=== PATIENT | male | born 1995 | race Caucasian/White ===

== ENCOUNTER 2017-12-21 00:15 | Emergency (ER) | payer SELFPAY ==
--- NOTE | 2017-12-21 01:11 | ER Document Report ---
ED GI/ - General Chief Complaint: Abdominal Pain Stated Complaint: ABDOMINAL PAINS Time Seen by Provider: 12/21/17 01:03 Mode of Arrival: Ambulatory Information source: Patient TRAVEL OUTSIDE OF THE [place] IN LAST 30 DAYS: No - HPI Patient complains to provider of: Abdominal pain Notes: 12/21/17 01:06 Patient is here with complaints of abdominal pain but mainly states that he is only here because he needs a work note because he missed work today. States for last few days when he wakes up in the morning he has had some generalized abdominal pains. He states it feels somewhat like hunger pain although is not hungry. He has some mild nausea with it but denies any vomiting or diarrhea. No blood in his stool. He denies any dysuria or hematuria. No rash. No injury. He denies any abdominal pain currently. He denies any chest pain or shortness of breath. He denies any other complaints. - Related Data Allergies/Adverse Reactions: No Known Allergies Allergy (Unverified 12/21/17 00:19) Past Medical History - Social History Smoking Status: Unknown if Ever Smoked Family History: Reviewed & Not Pertinent Patient has suicidal ideation: No Patient has homicidal ideation: No Renal/ Medical History: Denies: Hx Peritoneal Dialysis Review of Systems - Review of Systems -: Yes All other systems reviewed and negative Physical Exam - Notes Notes: GENERAL: alert, cooperative, nontoxic, no distress. HEAD: normocephalic, atraumatic EYES: conjunctiva pink without discharge, no external redness or swelling. EARS: no external swelling, no external redness NOSE: atraumatic, no external swelling MOUTH/THROAT: mucous membranes moist and pink, posterior pharynx without erythema, swelling, exudate. No trismus or drooling. NECK: soft, supple, full range of motion, no meningismus. CHEST: no distress, lungs clear and equal throughout. No wheezing, rales, rhonchi. CARDIAC: regular rate and rhythm, no murmur, normal capillary refill, normal pulses. No peripheral edema noted. ABDOMEN: Soft, nontender. BACK: full range of motion, no CVA tenderness. EXTREMITIES: full range of motion of all extremities. No redness, no swelling. NEURO: alert and oriented x 3, no focal deficits, full range of motion of all extremities. PYSCH: appropriate mood, affect. Patient is cooperative. SKIN: pink, warm, dry, no rash. Course - Re-evaluation Re-evalutation: 12/21/17 01:08 Patient is nontoxic-appearing with stable vitals. The patient is here mainly to get a work note. He states that over the last few days he has had some abdominal pain whenever he wakes up in the morning associated with some nausea. He denies any vomiting or diarrhea. No blood in his stools. No fever. He denies any pain currently. States that he had a call off of work and would like to get a work note at this time. On exam he has no abdominal tenderness. I asked if he would like for me to evaluate him for his abdominal pain for the workup, he states that he does not want a workup at this time that he would just like a work note saying that he can return back to work today. I will discharge the patient home with a work note. He was instructed to get established with a primary care doctor to have this abdominal pain further evaluated if it continues. He should return the emergency department if he develops worsening pain, high fever, persistent vomiting, or has any further concerns. The patient is noted to have elevated blood pressure during today's emergency department visit. The patient was informed of this finding. The patient was instructed that this may be related to pre-hypertension and requires further evaluation with a primary care provider. The patient has no hypertensive symptoms at this time. The patient's emergency department workup and current diagnosis were explained to the patient and or family. Follow-up instructions were provided. Medications if prescribed were discussed. Instructions for when to return to the emergency department including specific worrisome symptoms were discussed with the patient and/or family. Discharge - Discharge Clinical Impression: Abdominal pain Qualifiers: Abdominal location: generalized Qualified Code(s): R10.84 - Generalized abdominal pain Condition: Stable Disposition: HOME, SELF-CARE Instructions: Abdominal Pain (OM), Family Physicians / Practices Additional Instructions: Establish with a primary care doctor and have your abdominal pain further evaluated. Return the emergency department for worsening pain, high fever, persistent vomiting, blood in her stools, or for any further concerns. Your blood pressure was elevated during today's visit. Have this rechecked with your doctor. Forms: Return to Work Referrals: [facility] [Provider Group] - Follow up as needed
[2017-12-21 01:13] VITALS: BP 152/88
== END 2017-12-21 01:16 | disposition home or self-care (01) ==
LOC: ER 00:15
DX: R10.84 Generalized abdominal pain (principal); R11.0 Nausea; R03.0 Elevated blood-pressure reading, without diagnosis of hypertension
CPT/HCPCS: 99283

== ENCOUNTER 2018-01-07 00:52 | Emergency (ER) | payer SELFPAY ==
[2018-01-07 01:00] VITALS: BP 128/71
--- NOTE | 2018-01-07 02:02 | ER Document Report ---
ED General - General Mode of Arrival: Ambulatory Information source: [employer] TRAVEL OUTSIDE OF THE [place] IN LAST 30 DAYS: No - General Chief Complaint: Cough Stated Complaint: COUGHING UP BLOOD Time Seen by Provider: 01/07/18 01:54 Notes: Patient is a 22 year old male presenting to the emergency department complaining of coughing up blood onset 1 day ago with associated symptoms of throat pain, rhinorrhea and nasal congestion. Patient states he has been coughing and yesterday he had 2 episodes of coughing up blood. Patient describes this as a small clot. Patient states he continues to have a productive cough with sputum although he has not seen any more blood. Patient denies any chest pain, shortness of breath, fevers or recent trauma. Patient further denies a history of hemophilia, being placed on blood thinners or taking B.C or Goodys powder. Patient mentions having possible septal deviation on the left, stating it has been hard for him to breath out of his left nostril for years. (DIEGO MEJIA) - Related Data Allergies/Adverse Reactions: No Known Allergies Allergy (Verified 01/07/18 01:48) Past Medical History - Social History Smoking Status: Current Every Day Smoker Chew tobacco use (# tins/day): No Frequency of alcohol use: None Drug Abuse: Bath salts Family History: Reviewed & Not Pertinent Patient has suicidal ideation: No Patient has homicidal ideation: No Review of Systems - Review of Systems Constitutional: No symptoms reported EENT: See HPI, Nose congestion Cardiovascular: No symptoms reported Respiratory: See HPI, Cough Gastrointestinal: No symptoms reported Genitourinary: No symptoms reported Male Genitourinary: No symptoms reported Musculoskeletal: No symptoms reported Skin: No symptoms reported Hematologic/Lymphatic: No symptoms reported Neurological/Psychological: No symptoms reported -: Yes All other systems reviewed and negative Physical Exam - Vital signs Vitals: Temp Pulse Resp BP Pulse Ox 97.5 F 67 20 128/71 H 98 01/07/18 00:58 01/07/18 00:58 01/07/18 00:58 01/07/18 00:58 01/07/18 00:58 - Notes Notes: GENERAL: Alert, interacts well. No acute distress. HEAD: Normocephalic, atraumatic. EYES: Pupils equal, round, and reactive to light. Extraocular movements intact. ENT: Oral mucosa moist, tongue midline. Turbinate edema bilaterally, worse on the left, clear rhinorrhea. Cobblestoning in the posterior oropharynx. Postnasal drip. TM's intacts. NECK: Full range of motion. Supple. Trachea midline. LUNGS: Clear to auscultation bilaterally, no wheezes, rales, or rhonchi. No respiratory distress. HEART: Regular rate and rhythm. No murmurs, gallops, or rubs. ABDOMEN: Soft, non-tender. Non-distended. Bowel sounds present in all 4 quadrants. EXTREMITIES: Moves all 4 extremities spontaneously. No edema, radial and dorsalis pedis pulses 2/4 bilaterally. No cyanosis. NEUROLOGICAL: Alert and oriented x3. Normal speech. PSYCH: Normal affect, normal mood. SKIN: Warm, dry, normal turgor. No rashes or lesions noted. (DIEGO MEJIA) Course - Re-evaluation Re-evalutation: 01/07/18 02:03 Patient refuses chest x-ray at this time. Discussed with patient that given his age he is low risk for lung cancer however I typically check a chest x-ray and any patient with hemoptysis to rule out tumor, pneumonia or evidence of diffuse pulmonary hemorrhage. Considering he has had minimal hemoptysis may be a tablespoon he is low risk for these. At this time patient will go home, return should he have recurrent hemoptysis, any fevers, chest pain or any new or concerning symptoms. (RYLAND BARRY) - Vital Signs Vital signs: Temp Pulse Resp BP Pulse Ox 97.5 F 67 20 128/71 H 98 01/07/18 00:58 01/07/18 00:58 01/07/18 00:58 01/07/18 00:58 01/07/18 00:58 Discharge - Discharge Clinical Impression: Hemoptysis, Viral upper respiratory tract infection with cough Condition: Stable Disposition: HOME, SELF-CARE Additional Instructions: Today you chose not have a chest x-ray performed. This chest x-ray can help to rule out pneumonia, tumor or large bleeding into the lungs. Please return should you have more blood in your sputum, chest pain or any new or concerning symptoms. Use a nasal steroid spray such as Nasonex 1 spray per nostril twice a day to help decrease your stuffy nose. Prescriptions: Benzonatate [Tessalon Perles 100 mg Capsule] 100 mg PO Q8HP PRN #40 capsule PRN Reason: Forms: Return to Work Referrals: [facility] [Primary Care Provider] - Follow up as needed Scribe Attestation: 01/07/18 03:17 I personally performed the services described in the documentation, reviewed and edited the documentation which was dictated to the scribe in my presence, and it accurately records my words and actions. (RYLAND BARRY) Scribe Documentation - Scribe Written by Sherie:: Sherie Lu, 01/07/2018 02:22 acting as scribe for DrNaye:: Maye
== END 2018-01-07 02:26 | disposition home or self-care (01) ==
LOC: ER 00:52
DX: J06.9 Acute upper respiratory infection, unspecified (principal); B97.89 Other viral agents as the cause of diseases classified elsewhere; R04.2 Hemoptysis; R07.0 Pain in throat; J34.89 Other specified disorders of nose and nasal sinuses; R09.81 Nasal congestion; F17.200 Nicotine dependence, unspecified, uncomplicated
CPT/HCPCS: 99283

== ENCOUNTER 2020-03-15 07:50 | Inpatient (IN) | payer SELFPAY ==
[2020-03-15] MEDS ORDERED: NORMAL SALINE 500 ML with NALOXONE HCL 2 MG IV PRN ×6 (08:03→14:23)
[2020-03-15] MEDS ORDERED: NORMAL SALINE 1000 ML 1,000 ML IV ONE ×2 (08:09→09:15)
[2020-03-15] MEDS ORDERED: NALOXONE HCL INJ 2 MG/2 ML DISP.SYRIN ONE (08:24)
[2020-03-15 08:28] LABS: ABSOLUTE BASOPHILS # (AUTO) 0.1 10^3/uL (0.0-0.2); ABSOLUTE EOSINOPHILS # (AUTO) 0.4 10^3/uL (0.0-0.6); ABSOLUTE LYMPHOCYTES (AUTO) 1.1 10^3/uL (0.5-4.7); ABSOLUTE MONOCYTES (AUTO) 0.3 10^3/uL (0.1-1.4); ABSOLUTE NEUT (AUTO) 9.8 10^3/uL (1.7-8.2); BASOPHILS % (AUTO) 0.5 % (0-2); EOSINOPHILS % (AUTO) 3.4 % (0-6); LYMPHOCYTES % (AUTO) 9.3 % (13-45); MEAN CORPUSCULAR HGB CONC 34.8 g/dL (32.0-36.0); MEAN CORPUSCULAR VOLUME 92 fl (80-97); MONOCYTES % (AUTO) 2.6 % (3-13); PLATELET COUNT 157 10^3/uL (150-450); RED BLOOD COUNT 5.01 10^6/uL (4.35-5.55); RED CELL DISTRIBUTION WIDTH 12.7 % (11.5-14.0); SEGMENTED NEUTROPHILS % (AUTO) 84.2 % (42-78); TOTAL CELLS COUNTED % (AUTO) 100 %; WHITE BLOOD COUNT 11.6 10^3/uL (4.0-10.5)
[2020-03-15 08:55] LABS: ACETAMINOPHEN < 10 ug/mL (10-30); ALBUMIN 4.4 g/dL (3.5-5.0); ALCOHOL < 10 mg/dL (NONE DETECTED); ALKALINE PHOSPHATASE 64 U/L (38-126); ANION GAP 11 (5-19); ASPARTATE AMINO TRANSFERASE 30 U/L (17-59); BILIRUBIN,TOTAL 0.4 mg/dL (0.2-1.3); BLOOD UREA NITROGEN 20 mg/dL (7-20); CALCIUM 8.9 mg/dL (8.4-10.2); CARBON DIOXIDE 24 mmol/L (22-30); CHLORIDE 102 mmol/L (98-107); CREATINE KINASE 175 U/L (55-170); GLUCOSE 118 mg/dL (75-110); POTASSIUM 3.9 mmol/L (3.6-5.0); TOTAL PROTEIN 6.9 g/dL (6.3-8.2)
--- NOTE | 2020-03-15 08:55 | RADIOLOGY REPORT (SQ) ---
EXAM DESCRIPTION: CHEST SINGLE VIEW IMAGES COMPLETED DATE/TIME: 03/15/2020 8:42 am REASON FOR STUDY: sobr COMPARISON: None. EXAM PARAMETERS: NUMBER OF VIEWS: One view. TECHNIQUE: Single frontal radiographic view of the chest acquired. RADIATION DOSE: NA LIMITATIONS: None. FINDINGS: LUNGS AND PLEURA: Prominent bilateral interstitial ground-glass opacities diffusely. No d ense consolidation. No pleural effusion. No pneumothorax. MEDIASTINUM AND HILAR STRUCTURES: No masses. Contour normal. HEART AND VASCULAR STRUCTURES: Heart normal in size. Normal vasculature. BONES: No acute findings. HARDWARE: None in the chest. OTHER: No other significant finding. IMPRESSION: Diffuse bilateral interstitial ground-glass opacities suggestive of atypical infectious/ inflammatory process, of which viral pneumonia, including Covid-19, should be considered. Findings discussed with Dr. Sosa at 0840 hours on 03/16/2020 TECHNICAL DOCUMENTATION: JOB ID: [id number] 2010 [employer]- All Rights Reserved Reading location - IP/workstation name: [email or web address]
[2020-03-15] MEDS ORDERED: AZITHROMYCIN INJ 500 MG VIAL IV ONE (09:13)
[2020-03-15] MEDS ORDERED: CEFEPIME 1 GM/D5W RTU 1 GM/50 ML RTUPB IV ONE (09:14)
[2020-03-15 09:57] LABS: APPEARANCE,URINE CLEAR; BILIRUBIN,URINE NEGATIVE (NEGATIVE); COLOR,URINE STRAW; GLUCOSE, URINE >=500 mg/dL (NEGATIVE); KETONES,URINE NEGATIVE (NEGATIVE); LEUKOCYTE ESTERASE,URINE NEGATIVE (NEGATIVE); NITRITE,URINE NEGATIVE (NEGATIVE); PROTEIN,URINE NEGATIVE (NEGATIVE); URINE SPECIFIC GRAVITY 1.012; UROBILINOGEN,URINE NEGATIVE mg/dL (<2.0)
--- NOTE | 2020-03-15 10:11 | EKG REPORT ---
SEVERITY:- ABNORMAL ECG - SINUS RHYTHM RIGHT ATRIAL ABNORMALITY CONSIDER RIGHT VENTRICULAR HYPERTROPHY : Confirmed by: Reilly Green 15-Mar-2020 10:10:55
--- NOTE | 2020-03-15 10:14 | RADIOLOGY REPORT (SQ) ---
EXAM DESCRIPTION: CT HEAD WITHOUT IMAGES COMPLETED DATE/TIME: 03/15/2020 10:05 am REASON FOR STUDY: ams/drug OD COMPARISON: None. TECHNIQUE: Axial images acquired through the brain without intravenous contrast. Images reviewed wi th bone, brain and subdural windows. Additional sagittal and coronal reconstructions were generated. Images stored on PACS. All CT scanners at this facility use dose modulation, iterative reconstruction, and/or weight based d osing when appropriate to reduce radiation dose to as low as reasonably achievable (ALARA). [facility]: Dose Right [facility]: CareDose [facility]: Dose Right [facility]: Teradose 4D [facility]: [employer] RADIATION DOSE: CT Rad equipment meets quality standard of care and radiation dose reduction techniq ues were employed. CTDIvol: 53.2 mGy. DLP: 1097 mGy-cm. mGy. LIMITATIONS: None. FINDINGS: VENTRICLES: Normal size and contour. CEREBRUM: No masses. No hemorrhage. No midline shift. No evidence for acute infarction. Normal gra y/white matter differentiation. No areas of low density in the white matter. CEREBELLUM: No masses. No hemorrhage. No alteration of density. No evidence for acute infarction. EXTRAAXIAL SPACES: No fluid collections. No masses. ORBITS AND GLOBE: No intra- or extraconal masses. Normal contour of globe without masses. CALVARIUM: No fracture. PARANASAL SINUSES: No fluid or mucosal thickening. SOFT TISSUES: No mass or hematoma. OTHER: No other significant finding. IMPRESSION: NO ACUTE INTRACRANIAL IMAGING FINDINGS. EVIDENCE OF ACUTE STROKE: NO. COMMENT: Quality ID # [id number]: Final reports with documentation of one or more dose reduction techniques (e.g., Automated exposure control, adjustment of the mA and/or kV according to patient size, use of iterative reconstruction technique) TECHNICAL DOCUMENTATION: JOB ID: [id number] 2010 [employer]- All Rights Reserved Reading location - IP/workstation name: [email or web address]
--- NOTE | 2020-03-15 10:23 | RADIOLOGY REPORT (SQ) ---
EXAM DESCRIPTION: CT CHEST WITH IMAGES COMPLETED DATE/TIME: 03/15/2020 10:05 am REASON FOR STUDY: sobr/ground glassopacities in bases COMPARISON: None. TECHNIQUE: CT scan of the chest performed using helical scanning technique with dynamic intravenous contrast injection. Images reviewed with lung, soft tissue and bone windows. Reconstructed coronal and sagittal MPR and MIP images reviewed. All images stored on PACS. All CT scanners at this facility use dose modulation, iterative reconstruction, and/or weight based d osing when appropriate to reduce radiation dose to as low as reasonably achievable (ALARA). [facility]: Dose Right [facility]: CareDose [facility]: Dose Right [facility]: Teradose 4D [facility]: [employer] CONTRAST TYPE AND DOSE: contrast/concentration: Isovue 350.00 mmol/ml; Total Contrast Delivered: 80. 0 ml; Total Saline Delivered: 40.0 ml 80 cc Isovue 350 RENAL FUNCTION: None required. The patient is less than 50 years old. RADIATION DOSE: CT Rad equipment meets quality standard of care and radiation dose reduction techniq ues were employed. CTDIvol: 14.4 mGy. DLP: 567 mGy-cm. . LIMITATIONS: None. FINDINGS: LUNGS AND PLEURA: Dense bilateral lower lobe consolidation. Additional multifocal areas o f consolidation and ground-glass attenuation throughout Find both lungs in 8 relative central distrib ution. No pleural effusion. No pneumothorax. HILAR AND MEDIASTINAL STRUCTURES: No identified masses or abnormal nodes. HEART AND VASCULAR STRUCTURES: No aneurysm or dissection. No central pulmonary emboli. No pericardi al effusion. HARDWARE: None in the chest. UPPER ABDOMEN: No significant findings. Limited exam. THYROID AND OTHER SOFT TISSUES: No masses. No adenopathy. BONES: No significant finding. OTHER: No other significant finding. IMPRESSION: 1. Dense bilateral lower lobe consolidation with additional extensive patchy consolidat ion and ground-glass attenuation throughout both lungs in a relative central distribution. Findings suggestive of multifocal infectious/inflammatory process although component of edema/ ARDS not exclud ed. No cavitation. No significant effusion. 2. No central pulmonary embolus TECHNICAL DOCUMENTATION: JOB ID: [id number] Quality ID # [id number]: Final reports with documentation of one or more dose reduction techniques (e.g., Au tomated exposure control, adjustment of the mA and/or kV according to patient size, use of iterative reconstruction technique) 2010 [employer]- All Rights Reserved Reading location - IP/workstation name: [email or web address]
[2020-03-15 10:24] LABS: URINE BARBITURATES SCREEN NEGATIVE; URINE COCAINE SCREEN NEGATIVE; URINE METHADONE SCREEN NEGATIVE; URINE PHENCYCLIDINE SCREEN NEGATIVE
[2020-03-15 10:25] LABS: URINE MARIJUANA (THC) SCREEN NEGATIVE
[2020-03-15 10:54] LABS: URINE BENZODIAZEPINES SCREEN UNCONFIRMED POSITIVE
[2020-03-15 11:08] LABS: VENOUS BLOOD BASE EXCESS 1.3 mmol/L; VENOUS BLOOD HCO3 29.8 mmol/L (20-32); VENOUS BLOOD PCO2 63.6 mmHg (35-63); VENOUS BLOOD PH 7.29 (7.30-7.42)
[2020-03-15 13:00] LABS: ARTERIAL BLOOD BASE EXCESS -1.8 mmol/L; ARTERIAL BLOOD H2CO3 1.48 mmol/L (1.05-1.35); ARTERIAL BLOOD HCO3 24.8 mmol/L (20-24); ARTERIAL BLOOD PCO2 49.1 mmHg (35-45); ARTERIAL BLOOD PH 7.32 (7.35-7.45); ARTERIAL BLOOD TOTAL CO2 26.4 mmol/L (23-27)
[2020-03-15 13:03] LABS: ARTERIAL BLOOD FIO2 40%
--- NOTE | 2020-03-15 13:50 | CRITICAL CARE ADMISSION REPORT ---
HPI Date:: 03/15/20 Time:: 12:00 Reason for ICU Reason:: Narcan drip and altered mental status on bipap. Admission Date/Time & PCP: Admission Date/Time: Primary Care Provider: MIGUEL REYES HPI: This patient is an otherwise heathy 24 yo man who was found altered on the floor of his home by his girlfriend. EMS was called and gave a dose of narcan which was somewhat successful but he again became sleepy and had to be placed on a narcan drip. Bipap for some shallow breathing. He was taken off narcan and bipap to see if he was awake enough for the floor and he lasted about 30 minutes but again became sleepy with grunting respirations. His CXR and chest CT shows dependant bibasilar infiltrates. Aspiration is most likely but his COVID exposure is unknown therefore he is a PUI. History obtained from:: Dr Sosa - Diagnosis/Plan (1) Opiate or related narcotic overdose Qualifiers: Encounter type: initial encounter Injury intent: accidental or unintentional Qualified Code(s): T40.601A - Poisoning by unspecified narcotics, accidental (unintentional), initial encounter Is this a current diagnosis for this admission?: Yes Plan: As far as we can tell this was unintentional. We need to ask when appropriate. He will need the narcan drip until he is more awake, perhaps this afternoon (2) Aspiration into airway Qualifiers: Encounter type: initial encounter Qualified Code(s): T17.908A - Unspecified foreign body in respiratory tract, part unspecified causing other injury, initial encounter Is this a current diagnosis for this admission?: Yes Plan: This is the most likely cause. It is not symptomatic but may get worse in the next day. (3) Person under investigation for COVID-19 Is this a current diagnosis for this admission?: Yes Plan: We do not know his COVID exposure therefore he will stay a PUI until testing is back. Plan Summary: Admit to the ICU as long as he needs the narcan infusion. Past Medical History Past Medical History: Not known but old records dont reveal any chronic conditions. Medical History: None Past Surgical History Past Surgical History: Not known Social/Family History - Social History Smoking Status: Current Every Day Smoker Hx Recreational Drug Use: Yes Drugs: Heroin - Said by report to snort heroin - Family History Family History: Other - Not known - Medication/Allergies Home Medications: Benzonatate [Tessalon Perles 100 mg Capsule] 100 mg PO Q8HP PRN #40 capsule 01/07/18 Allergies/Adverse Reactions: No Known Allergies Allergy (Verified 01/07/18 01:48) Review of Systems ROS unobtainable: Due to endotracheal tube, Due to mental status Physical Exam Vital Signs: Temp Pulse Resp BP Pulse Ox 98.2 F 19 115/77 95 03/15/20 13:01 03/15/20 13:01 03/15/20 13:01 03/15/20 13:01 Intake & Output 03/14/20 03/15/20 03/16/20 06:59 06:59 06:59 Intake Total 1232 Balance 1232 Weight 71.4 kg Weight/Height Weight 71.4 kg Height 6 ft General appearance: PRESENT: no acute distress, cooperative, well-developed, well-nourished Head exam: PRESENT: atraumatic, normocephalic Eye exam: PRESENT: conjunctiva pink, EOMI, PERRLA. ABSENT: scleral icterus Ear exam: PRESENT: normal external ear exam Mouth exam: PRESENT: moist, tongue midline Respiratory exam: PRESENT: clear to auscultation rama. ABSENT: rales, rhonchi, wheezes Cardiovascular exam: PRESENT: tachycardia Pulses: PRESENT: normal dorsalis pedis pul Vascular exam: PRESENT: normal capillary refill GI/Abdominal exam: PRESENT: normal bowel sounds, soft. ABSENT: distended, guarding, mass, organolmegaly, rebound, tenderness Rectal exam: PRESENT: deferred Extremities exam: PRESENT: full ROM. ABSENT: calf tenderness, clubbing, pedal edema Musculoskeletal exam: PRESENT: normal inspection Neurological exam: PRESENT: altered, oriented to person, CN II-XII grossly intact Psychiatric exam: PRESENT: appropriate affect, normal mood. ABSENT: homicidal ideation, suicidal ideation Skin exam: PRESENT: dry, intact, warm. ABSENT: cyanosis, rash Laboratory/Radiographs Laboratory Results: 03/15/20 08:10 03/15/20 08:10 03/15/20 03/15/20 03/15/20 08:10 08:10 09:16 WBC 11.6 H RBC 5.01 Hgb 16.0 Hct 46.0 MCV 92 MCH 32.0 MCHC 34.8 RDW 12.7 Plt Count 157 Seg Neutrophils % 84.2 H Carbonic Acid HCO3/H2CO3 Ratio ABG pH ABG pCO2 ABG pO2 ABG HCO3 ABG O2 Saturation ABG Base Excess VBG pH VBG pCO2 VBG HCO3 VBG Base Excess FiO2 Sodium 137.3 Potassium 3.9 Chloride 102 Carbon Dioxide 24 Anion Gap 11 BUN 20 Creatinine 0.95 Est GFR ( Amer) > 60 Glucose 118 H Lactic Acid 1.4 Calcium 8.9 Total Bilirubin 0.4 AST 30 Alkaline Phosphatase 64 Total Protein 6.9 Albumin 4.4 Lipase 108.0 Urine Color Urine Appearance Urine pH Ur Specific [place] Urine Protein Urine Glucose (UA) Urine Ketones Urine Blood Urine Nitrite Ur Leukocyte Esterase Urine WBC (Auto) Urine RBC (Auto) 03/15/20 03/15/20 03/15/20 09:16 09:16 10:48 WBC RBC Hgb Hct MCV MCH MCHC RDW Plt Count Seg Neutrophils % Carbonic Acid HCO3/H2CO3 Ratio ABG pH ABG pCO2 ABG pO2 ABG HCO3 ABG O2 Saturation ABG Base Excess VBG pH Cancelled 7.29 L VBG pCO2 Cancelled 63.6 H VBG HCO3 Cancelled 29.8 VBG Base Excess Cancelled 1.3 FiO2 Sodium Potassium Chloride Carbon Dioxide Anion Gap BUN Creatinine Est GFR ( Amer) Glucose Lactic Acid Calcium Total Bilirubin AST Alkaline Phosphatase Total Protein Albumin Lipase Urine Color STRAW Urine Appearance CLEAR Urine pH 5.0 Ur Specific [place] 1.012 Urine Protein NEGATIVE Urine Glucose (UA) >=500 H Urine Ketones NEGATIVE Urine Blood NEGATIVE Urine Nitrite NEGATIVE Ur Leukocyte Esterase NEGATIVE Urine WBC (Auto) 1 Urine RBC (Auto) 2 03/15/20 12:42 WBC RBC Hgb Hct MCV MCH MCHC RDW Plt Count Seg Neutrophils % Carbonic Acid 1.48 H HCO3/H2CO3 Ratio 16:1 ABG pH 7.32 L ABG pCO2 49.1 H ABG pO2 88.0 ABG HCO3 24.8 H ABG O2 Saturation 96.0 ABG Base Excess -1.8 VBG pH VBG pCO2 VBG HCO3 VBG Base Excess FiO2 40% Sodium Potassium Chloride Carbon Dioxide Anion Gap BUN Creatinine Est GFR ( Amer) Glucose Lactic Acid Calcium Total Bilirubin AST Alkaline Phosphatase Total Protein Albumin Lipase Urine Color Urine Appearance Urine pH Ur Specific [place] Urine Protein Urine Glucose (UA) Urine Ketones Urine Blood Urine Nitrite Ur Leukocyte Esterase Urine WBC (Auto) Urine RBC (Auto) 03/15/20 03/15/20 08:10 08:10 Creatine Kinase 175 H Troponin I < 0.012 Impressions: Chest X-Ray 03/15/20 08:08 IMPRESSION: Diffuse bilateral interstitial ground-glass opacities suggestive of atypical infectious/ inflammatory process, of which viral pneumonia, including Covid-19, should be considered. Findings discussed with Dr. Sosa at 0840 hours on 03/16/[address] 03/15/20 09:08 IMPRESSION: NO ACUTE INTRACRANIAL IMAGING FINDINGS. EVIDENCE OF ACUTE STROKE: NO. Chest CT 03/15/20 09:10 IMPRESSION: 1. Dense bilateral lower lobe consolidation with additional extensive patchy consolidation and ground-glass attenuation throughout both hollis gs in a relative central distribution. Findings suggestive of multifocal infectious/inflammatory process although component of edema/ ARDS not excluded. No cavitation. No significant effusion. 2. No central pulmonary embolus EKG: NSR All labs, radiographs, diagnostic studies and EKGs were personally reviewed: Yes In addition, reports of radiographic and diagnostic studies were read: Yes Critical Time Critical Time (minutes): 60 -: The care of a critically ill patient is dynamic. This note represents a static moment in the admission process. Orders and treatments may be given simultaneously and urgently, and time is not claims representative of the treatment process. This patient requires Critical Care secondary to life threatening organ or limb dysfunction. Without Critical Care services, the patient is at risk for increased mortality and morbidity.
--- NOTE | 2020-03-15 14:05 | ER Document Report ---
Entered by MOHAMUD JOSHI SCRIBE 03/15/20 0755 Acting as scribe for:VIDHYA TOSCANO MD ED Substance Abuse / Acc. OD - General Stated Complaint: POSSIBLE OVERDOSE Primary Care Provider: MIGUEL REYES [Primary Care Provider] - Follow up as needed Mode of Arrival: Ambulatory Information source: Patient Notes: This 24-year-old male patient presents to the emergency department today secondary to a heroin overdose just prior to arrival. EMS arrived on scene and was told that the patient frequently snorts heroin. He had a pulse oximetry of 55% on room air and "his ears were blue". EMS administered multiple doses of Narcan prior to arrival. Patient became combative and he was given ketamine for sedation. TRAVEL OUTSIDE OF THE [place] IN LAST 30 DAYS: No - Related Data Allergies/Adverse Reactions: No Known Allergies Allergy (Verified 01/07/18 01:48) Past Medical History - General Information source: [facility] Records Cannot obtain history due to: Unstable vital signs, Uncooperative - Social History Smoking Status: Current Every Day Smoker Drug Abuse: Heroin Lives with: Spouse/Significant other Family History: Reviewed & Not Pertinent - Medical History Medical History: Negative Surgical Hx: Negative Review of Systems - Review of Systems -: Yes ROS unobtainable due to patient's medical condition Physical Exam - Vital signs Vitals: Resp BP Pulse Ox 27 H 136/96 H 74 L 03/15/20 07:58 03/15/20 07:58 03/15/20 07:58 - Notes Notes: Physical Exam: General: Thrashes and jerks, uncooperative. HEENT: Normocephalic. Atraumatic. PERRL. Extraocular movements intact. Oropharynx clear. Neck: Supple. Non-tender. Respiratory: On c-pap from EMS. Clear and equal breath sounds bilaterally. Pulse ox 98%. Cardiovascular: Regular rate and rhythm. Abdominal: Normal Inspection. Non-tender. No distension. Normal Bowel Sounds. Back: No gross abnormalities. Extremities: Moves all four extremities. Upper extremities: Normal inspection. Normal ROM. Lower extremities: Normal inspection. No edema. Normal ROM. Neurological: Unable to assess Psychological: Unable to assess Skin: Warm. Dry. Normal color. Course - Re-evaluation Re-evalutation: 03/15/20 11:[address] Salcedo ICU attending who states he will come down and see the patient 03/15/20 13:54 Patient uncooperative on exam on initial entry into the ED. Patient has been given IV Narcan due to have an overdose of a narcotic opiate. Patient is reported to snort heroin up his nostrils. Patient was still uncooperative after getting Narcan awaken and arouse and combative therefore IV 1 ketamine was given. And patient was resting and then the ketamine wore off prior to getting to the ED and he was combative again. - Vital Signs Vital signs: Temp Pulse Resp BP Pulse Ox 98.3 F 15 117/77 98 03/15/20 13:31 03/15/20 13:31 03/15/20 13:31 03/15/20 13:31 Vital signs stable. Patient was placed on BiPAP to increase his P O2 which was low and 80s when EMS arrived. BiPAP was started in the field by EMS. - Laboratory Result Diagrams: 03/15/20 08:10 03/15/20 08:10 Laboratory results interpreted by me: 03/15/20 03/15/20 03/15/20 08:10 08:10 09:16 WBC 11.6 H Lymph % (Auto) 9.3 L Angelina % (Auto) 2.6 L Absolute Neuts (auto) 9.8 H Seg Neutrophils % 84.2 H Carbonic Acid ABG pH ABG pCO2 ABG HCO3 VBG pH VBG pCO2 Glucose 118 H Creatine Kinase 175 H Urine Glucose (UA) >=500 H Urine Ascorbic Acid 20 H Acetaminophen < 10 L 03/15/20 03/15/20 10:48 12:42 WBC Lymph % (Auto) Angelina % (Auto) Absolute Neuts (auto) Seg Neutrophils % Carbonic Acid 1.48 H ABG pH 7.32 L ABG pCO2 49.1 H ABG HCO3 24.8 H VBG pH 7.29 L VBG pCO2 63.6 H Glucose Creatine Kinase Urine Glucose (UA) Urine Ascorbic Acid Acetaminophen Laboratories unremarkable except for evidence for opiates on the urine drug screen. - Diagnostic Test Radiology reviewed: Image reviewed, Reports reviewed Radiology results interpreted by me: 03/15/20 13:57 Chest x-ray shows groundglass opacities in both bases questionable inflammatory disease versus some infectious disease. Does not appear to be aspiration. 03/15/20 13:58 CT scan of the chest shows no pulmonary emboli but bilateral consolidations in both lung bases consistent with an infectious or inflammatory process. CT head shows no acute process no evidence of stroke. - EKG Interpretation by Me Additional EKG results interpreted by me: 03/15/20 14:00 12-lead EKG shows normal sinus rhythm rate of 96 right atrial abnormality. No acute ST-T wave changes. Critical Care Note - Critical Care Note Total time excluding time spent on procedures (mins): 45 - Management of patient's behavior on arrival which was combative and somnolent at other times. Required physical restraints in order to manage patient's airway and oxygenation ventilation with BiPAP. Patient was placed on IV Narcan drip in order to maintain some arousal state. Patient's BiPAP was tolerated with control of his behavior through physical restraints on arrival. Treatment for infection noted on chest x-ray with bilateral infiltrates. Consideration forCOVID-19 positive test (U07.1, COVID-19) with Acute Respiratory Distress Syndrome (ARDS) (J80, ARDS)(If respiratory failure or sepsis present, add as separate assessment)Because of bilateral groundglass appearance of the evaluation of altered mental status with laboratory survey and CT scan of head to determine if there is been any anoxic encephalopathy or anoxic injury to brain. Discharge - Discharge Clinical Impression: Person under investigation for COVID-19, Low O2 saturation, Altered mental status, Bilateral pneumonia Opiate or related narcotic overdose Qualifiers: Encounter type: initial encounter Injury intent: accidental or unintentional Qualified Code(s): T40.601A - Poisoning by unspecified narcotics, accidental (u nintentional), initial encounter Condition: Critical Disposition: ADMITTED INPATIENT Admitting Provider: Matias (Economics Professor) Unit Admitted: ICU Referrals: LOCALMD,NO [Primary Care Provider] - Follow up as needed I personally performed the services described in the documentation, reviewed and edited the documentation which was dictated to the scribe in my presence, and it accurately records my words and actions.
[2020-03-15] MEDS ORDERED: ACETAMINOPHEN 325 MG TABLET PO PRN (14:09)
[2020-03-15] MEDS ORDERED: NORMAL SALINE 1000 ML 1,000 ML IV PRN (14:09)
[2020-03-15] MEDS ORDERED: ONDANSETRON HCL INJ/PF 4 MG/2 ML SDV IV PRN ×2 (14:09→18:57)
[2020-03-15] MEDS ORDERED: HEPARIN SOD (PORCINE) 5,000 UNIT/ML 1 ML VIAL SUBCUT SCH (14:30)
--- NOTE | 2020-03-15 17:32 | Progress Note ---
Provider Note Provider Note: patient is still in [facility] ED. However he is off bipap. On N/C very awake. Has talked to girlfriend on the phone. Off narcan drip 45 minutes or more. Stable for the medical floor. He does not need the ICU any longer.
[2020-03-15] MEDS ORDERED: ONDANSETRON 4 MG TAB.RAPDIS PO PRN (18:57)
--- NOTE | 2020-03-15 19:10 | PDOC H&P ---
History of Present Illness Admission Date/PCP: 03/15/20 14:32 NO LOCALID History of Present Illness: MERYL ZHU is a 24 year old male with no significant past medical history presents with a 1 day history of being found down by his fiance unresponsive after snorting heroin and was noted to have a pulse but agonal respirations. EMS was called patient was given Narcan and he subsequently became extremely combative and violent was given Versed and ketamine then brought to ED where he was given an additional dose of Narcan and put on a Narcan drip. ICU was consulted by ED and patient was removed from BiPAP successfully, breathing comfortably on room air. Medicine service was contacted for admission to medical floor. Chest x- ray showed likely aspiration pneumonia. Patient denies any COVID-19 contacts are at risk behavior. He has not had any fevers or recent upper respiratory s ymptoms and based on the reason he came to the hospital I think we have pretty clear source of his abnormal chest x-ray. Patient started on Unasyn. Past Medical History Psychiatric Medical History: Reports: Substance Abuse, Tobacco Dependency Past Surgical History Past Surgical History: Reports: None Social History Lives with: Spouse/Significant other Smoking Status: Current Every Day Smoker Frequency of Alcohol Use: None Hx Recreational Drug Use: Yes Drugs: Heroin - Said by report to snort heroin Hx Prescription Drug Abuse: Yes - Advance Directive Resuscitation Status: Full Code Surrogate healthcare decision maker:: Audra Gonsalves Family History Family History: Reviewed & Not Pertinent, CAD, CVA Parental Family History Reviewed: Yes Children Family History Reviewed: Yes Sibling(s) Family History Reviewed.: Yes Medication/Allergy Home Medications: No Home Medications 03/15/20 Allergies/Adverse Reactions: No Known Allergies Allergy (Verified 01/07/18 01:48) Review of Systems All systems: reviewed and no additional remarkable complaints except as stated - Review of systems per HPI, otherwise negative Physical Exam Vital Signs: Temp Pulse Resp BP Pulse Ox 99.1 F 29 H 110/63 98 03/15/20 18:31 03/15/20 18:31 03/15/20 18:31 03/15/20 18:31 Intake & Output 03/14/20 03/15/20 03/16/20 06:59 06:59 06:59 Intake Total 2303 Balance 2303 Weight 71.4 kg General appearance: PRESENT: no acute distress, well-developed, well-nourished Head exam: PRESENT: atraumatic, normocephalic Eye exam: PRESENT: conjunctiva pink Mouth exam: PRESENT: moist Respiratory exam: PRESENT: rhonchi - rhonchi bilaterally mild to moderate. ABSENT: rales, wheezes Cardiovascular exam: PRESENT: RRR. ABSENT: diastolic murmur, rubs, systolic murmur GI/Abdominal exam: PRESENT: normal bowel sounds, soft. ABSENT: distended, guarding, mass, organolmegaly, rebound, tenderness Rectal exam: PRESENT: deferred Neurological exam: PRESENT: alert, awake, oriented to person, oriented to place, oriented to time, oriented to situation Psychiatric exam: PRESENT: appropriate affect, normal mood Skin exam: PRESENT: dry, intact, warm Results Laboratory Results: 03/15/20 08:10 03/15/20 08:10 03/15/20 03/15/20 03/15/20 08:10 08:10 09:16 WBC 11.6 H RBC 5.01 Hgb 16.0 Hct 46.0 MCV 92 MCH 32.0 MCHC 34.8 RDW 12.7 Plt Count 157 Seg Neutrophils % 84.2 H Carbonic Acid HCO3/H2CO3 Ratio ABG pH ABG pCO2 ABG pO2 ABG HCO3 ABG O2 Saturation ABG Base Excess VBG pH VBG pCO2 VBG HCO3 VBG Base Excess FiO2 Sodium 137.3 Potassium 3.9 Chloride 102 Carbon Dioxide 24 Anion Gap 11 BUN 20 Creatinine 0.95 Est GFR ( Amer) > 60 Glucose 118 H Lactic Acid 1.4 Calcium 8.9 Total Bilirubin 0.4 AST 30 Alkaline Phosphatase 64 Total Protein 6.9 Albumin 4.4 Lipase 108.0 Urine Color Urine Appearance Urine pH Ur Specific [place] Urine Protein Urine Glucose (UA) Urine Ketones Urine Blood Urine Nitrite Ur Leukocyte Esterase Urine WBC (Auto) Urine RBC (Auto) 03/15/20 03/15/20 03/15/20 09:16 09:16 10:48 WBC RBC Hgb Hct MCV MCH MCHC RDW Plt Count Seg Neutrophils % Carbonic Acid HCO3/H2CO3 Ratio ABG pH ABG pCO2 ABG pO2 ABG HCO3 ABG O2 Saturation ABG Base Excess VBG pH Cancelled 7.29 L VBG pCO2 Cancelled 63.6 H VBG HCO3 Cancelled 29.8 VBG Base Excess Cancelled 1.3 FiO2 Sodium Potassium Chloride Carbon Dioxide Anion Gap BUN Creatinine Est GFR ( Amer) Glucose Lactic Acid Calcium Total Bilirubin AST Alkaline Phosphatase Total Protein Albumin Lipase Urine Color STRAW Urine Appearance CLEAR Urine pH 5.0 Ur Specific [place] 1.012 Urine Protein NEGATIVE Urine Glucose (UA) >=500 H Urine Ketones NEGATIVE Urine Blood NEGATIVE Urine Nitrite NEGATIVE Ur Leukocyte Esterase NEGATIVE Urine WBC (Auto) 1 Urine RBC (Auto) 2 03/15/20 12:42 WBC RBC Hgb Hct MCV MCH MCHC RDW Plt Count Seg Neutrophils % Carbonic Acid 1.48 H HCO3/H2CO3 Ratio 16:1 ABG pH 7.32 L ABG pCO2 49.1 H ABG pO2 88.0 ABG HCO3 24.8 H ABG O2 Saturation 96.0 ABG Base Excess -1.8 VBG pH VBG pCO2 VBG HCO3 VBG Base Excess FiO2 40% Sodium Potassium Chloride Carbon Dioxide Anion Gap BUN Creatinine Est GFR ( Amer) Glucose Lactic Acid Calcium Total Bilirubin AST Alkaline Phosphatase Total Protein Albumin Lipase Urine Color Urine Appearance Urine pH Ur Specific [place] Urine Protein Urine Glucose (UA) Urine Ketones Urine Blood Urine Nitrite Ur Leukocyte Esterase Urine WBC (Auto) Urine RBC (Auto) 03/15/20 03/15/20 08:10 08:10 Creatine Kinase 175 H Troponin I < 0.012 Impressions: Chest X-Ray 03/15/20 08:08 IMPRESSION: Diffuse bilateral interstitial ground-glass opacities suggestive of atypical infectious/ inflammatory process, of which viral pneumonia, including Covid-19, should be considered. Findings discussed with Dr. Sosa at 0840 hours on 03/16/[address] 03/15/20 09:08 IMPRESSION: NO ACUTE INTRACRANIAL IMAGING FINDINGS. EVIDENCE OF ACUTE STROKE: NO. Chest CT 03/15/20 09:10 IMPRESSION: 1. Dense bilateral lower lobe consolidation with additional extensive patchy consolidation and ground-glass attenuation throughout both lungs in a relative central distribution. Findings suggestive of multifocal infectious/inflammatory process although component of edema/ ARDS not excluded. No cavitation. No significant effusion. 2. No central pulmonary embolus Assessment and Plan - Diagnosis (1) Accidental heroin overdose Is this a current diagnosis for this admission?: Yes Plan: Found down by fianc after overdose Given 2 doses of Narcan and started on Narcan drip, severe agitation required a dose of Versed and ketamine, patient remained calm afterwards Aspiration pneumonia has resolved Counseled on cessation (2) Aspiration pneumonia Is this a current diagnosis for this admission?: Yes Plan: Seen on chest x-ray, none of the patient's history is suspicious for COVID-19 infection of the radiology decided to mention COVID-19 in his read; this does not correlate clinically obviously Unasyn Possible he just has an aspiration pneumonitis rather than pneumonia as he has no fevers or other signs of systemic infection Bedside swallow then he can have a diet if he passes it (3) Tobacco abuse Is this a current diagnosis for this admission?: Yes Plan: Counseled on cessation (4) Acute hypoxemic respiratory failure Is this a current diagnosis for this admission?: Yes Plan: Due to aspiration pneumonia and heroin overdose Taken off BiPAP after admission - Time Time Spent with patient: 25-34 minutes Medications reviewed and adjusted accordingly: Yes Anticipated Discharge Disposition: Home, Self Care Anticipated Discharge Timeframe: within 48 hours - Inpatient Certification Based on my medical assessment, after consideration of the patient's comorbidi ties, presenting symptoms, or acuity I expect that the services needed warrant INPATIENT care.: Yes I certify that my determination is in accordance with my understanding of Macario rice's requirements for reasonable and necessary INPATIENT services [42 CFR 412.3e].: Yes Medical Necessity: Significant Comorbidiites Make Outpatient Treatment Too Risky, Need Close Monitoring Due to Risk of Patient Decompensation, Need for IV Antibiotics, Risk of Complication if Not Cared For in Hospital, Risk of Diagnosis Which Will Require Inpatient Eval/Care/Monitoring
--- NOTE | 2020-03-15 19:11 | ADVANCED CARE ---
- Diagnosis (1) Accidental heroin overdose Diagnosis Current: Yes (2) Aspiration pneumonia Diagnosis Current: Yes (3) Tobacco abuse Diagnosis Current: Yes (4) Acute hypoxemic respiratory failure Diagnosis Current: Yes Attendance: Patient Resuscitation Status: Full Code Discussion: All aspects of code status discussed with patient/POA including cardioversion, chest compressions, and intubation and the patient/POA indicated they wish to be full code MPOA is designated as: Valerie Zhu Time Spent: Greater than 16 minutes
--- NOTE | 2020-03-15 19:51 | Left Against Medical Advice ---
Against Medical Advice Admission Date/Time: 03/15/20 14:32 Primary Care Provider: MIGUEL PALENCIAFL Date of Patient Emigration: 03/15/20 - Diagnosis: (1) Accidental heroin overdose Is this a current diagnosis for this admission?: Yes (2) Acute hypoxemic respiratory failure Is this a current diagnosis for this admission?: Yes (3) Aspiration into airway Is this a current diagnosis for this admission?: Yes (4) Aspiration pneumonia Is this a current diagnosis for this admission?: Yes (5) Opiate or related narcotic overdose Is this a current diagnosis for this admission?: Yes (6) Person under investigation for COVID-19 Is this a current diagnosis for this admission?: Yes (7) Tobacco abuse Is this a current diagnosis for this admission?: Yes - Summary: Summary: Please see Admission and Progress Notes as well. MERYL ZHU is a 24 M, who LEFT AGAINST MEDICAL ADVICE. The Patient was admitted on 03/15/20 14:32.
[2020-03-15 20:06] VITALS: BP 115/71
[2020-03-15] MEDS ORDERED: AMPICILLIN SODIUM/SULBACTAM NA 3 GM in NORMAL SALINE 100 ML IV SCH (21:00)
[2020-03-16] MEDS ORDERED: AMPICILLIN SOD/SULBACTAM 3 GM VIAL IV SCH
[2020-03-16] MEDS ORDERED: DOCUSATE SODIUM 100 MG CAPSULE PO SCH (10:00)
== END 2020-03-15 20:30 | disposition left against medical advice (07) | DRG 917 ==
LOC: ER 07:50 → EH 14:32 → 3W 19:10
PROVIDERS: ADMIT Internal Medicine; ATTEND Internal Medicine
PROC: 5A09357 Assistance with Respiratory Ventilation, Less than 24 Consecutive Hours, Continuous Positive Airway Pressure (ICD-10-PCS; principal; 2020-03-15)
DX: T40.1X1A Poisoning by heroin, accidental (unintentional), initial encounter (principal); J69.0 Pneumonitis due to inhalation of food and vomit; J96.01 Acute respiratory failure with hypoxia; Y92.003 Bedroom of unspecified non-institutional (private) residence as the place of occurrence of the external cause; F17.200 Nicotine dependence, unspecified, uncomplicated; Z82.3 Family history of stroke; Z82.49 Family history of ischemic heart disease and other diseases of the circulatory system; Z20.828 Contact with and (suspected) exposure to other viral communicable diseases
CPT/HCPCS: 36415; 36600; 51702; 70450; 71045; 71260; 80053; 80307; 81001; 82550; 82803; 82962; 83605; 83690; 84484; 85025; 87040; 93005; 93010; 96365; 96366; 96368; 96372; 99291; J0456; J0692; J1644; J2310; J7030; J7040